=== PATIENT | female | born 1985 | race Caucasian/White ===

== ENCOUNTER 2016-12-21 21:16 | Emergency (ER) | payer OTHER ==
[2016-12-21 21:47] LABS: BASOPHIL 0.3 % (0-2); EOSINOPHIL 1.3 % (0-5); HCT 43.3 % (37.0-47.0); HGB 14.9 g/dl (12.5-16.0); LYMPHOCYTE 26.7 % (15-48); MCH 28.6 pg (25.0-31.0); MCHC 34.4 g/dL (32.0-36.0); MCV 83.1 fL (78.0-100.0); MONOCYTE 7.6 % (0-12); MPV 11.1 fL (6.0-9.5); NEUTROPHIL 64.1 % (41-80); PLT 252 K/uL (150-400); RBC 5.21 M/uL (4.20-5.40); RDW 13.8 % (11.5-14.0); WBC 11.3 K/uL (4.0-10.5)
[2016-12-21 22:07] LABS: ALBUMIN 4.6 g/dL (3.5-5.0); BILIRUBIN - TOTAL 0.4 mg/dL (0.1-1.0); CREATININE 0.7 mg/dL (0.5-1.0); GLOBULIN (CALCULATION) 2.7 g/dL (2.2-4.2); POTASSIUM 3.5 mmol/L (3.5-5.1); TOTAL PROTEIN 7.3 g/dL (6.4-8.3)
[2016-12-21 22:29] LABS: BILIRUBIN NEGATIVE (NEGATIVE); BLOOD NEGATIVE Ery/uL (NEGATIVE); CLARITY CLEAR (CLEAR); COLOR YELLOW (YELLOW); GLUCOSE (U) NORMAL (NORMAL); KETONE (U) NEGATIVE (NEGATIVE); LEUKOCYTES NEGATIVE Leu/uL (NEGATIVE); NITRITE NEGATIVE (NEGATIVE); PROTEIN NEGATIVE (NEGATIVE); SPECIFIC GRAVITY 1.015 (1.001-1.030); UROBILINOGEN 0.2 mg/dL (0.2-1.0); pH 6.5 (5.0-9.0)
== END 2016-12-22 00:05 | disposition home or self-care (01) ==
LOC: FER 21:16
PROVIDERS: Internal Medicine
DX: O99.411 Diseases of the circulatory system complicating pregnancy, first trimester (principal); I95.1 Orthostatic hypotension; O24.419 Gestational diabetes mellitus in pregnancy, unspecified control; Z3A.10 10 weeks gestation of pregnancy
CPT/HCPCS: 36415; 80053; 81003; 84702; 85025